=== PATIENT | male | born 1970 | race African-American/Black ===

== ENCOUNTER 2019-04-02 10:49 | Emergency (ER) | payer SELFPAY ==
[2019-04-02 10:55] VITALS: PULSE 79; TEMP 98.3; BMI 26.2
--- NOTE | 2019-04-02 11:03 | PDOC ---
History of Present Illness - General Chief Complaint: Chest Pain Stated Complaint: CP/SOB AND HICCUPS Time Seen by Provider: 04/02/19 10:59 - History of Present Illness Initial Comments: HPI: 48yo M with PMH of acid reflux, SVT, HLD, and asthma complaining of hiccups x 2 days. Patient states he had a similar episode about one month ago. He presented to [facility] and was given "a shot" which in addition to a prescription medication (does not remember the name) helped his hiccups dissipate after about three days. Patient believes his hiccups are triggered by acid reflux. Has been eating poorly lately due to the holiday season. Reports SOB and chest burning associated with hiccuping. No fevers or chills. PCP: Dr. Moura ROS: Constitutional: no fever, no chills HEENT: no throat pain, no dysphagia Cardiovascular: +chest burning no palpitations Respiratory: +hiccuping, +shortness of breath Gastrointestinal: no abdominal pain, no nausea Genitourinary: no dysuria, no hematuria Musculoskeletal: no myalgia, no arthralgia Skin: no rash, no itching Neurologic: no headache, no weakness PE: General: Awake, alert, and fully oriented, in no acute distress Head: No signs of trauma Eyes: EOMI, sclera anicteric ENT: Moist mucus membranes Neck: Normal ROM, supple Lungs: Lungs clear, Normal breath sounds, +hiccuping Cardio: Regular rhythm, S1 and S2 present Abdomen: Soft, nontender. No guarding, no rebound, no masses Extremities: Normal range of motion, Distal pulses present SKIN: Warm, Dry, normal turgor Neurologic: Cranial nerves II through XII grossly intact. Normal speech ED Course/MDM: DDX including but not limited to hiccuping due to GERD/psych, ACS, MSK Labs, EKG, CXR Protonix Famotidine Reglan Simethicone EKG: rate 76, Qtc 400, NSR 04/02/19 11:03 CBC WBC 7.1 K/mm3 (4.0-10.0) 04/02/19 11:30 RBC 5.32 M/mm3 (4.00-5.60) 04/02/19 11:30 Hgb 14.8 GM/dL (11.7-16.9) 04/02/19 11:30 Hct 45.7 % (35.4-49) 04/02/19 11:30 MCV 85.9 fl (80-96) 04/02/19 11:30 MCH 27.8 pg (25.7-33.7) 04/02/19 11:30 MCHC 32.4 g/dl (32.0-35.9) 04/02/19 11:30 RDW 13.8 % (11.9-15.9) 04/02/19 11:30 Plt Count 194 K/MM3 (134-434) D 04/02/19 11:30 MPV 8.4 fl (7.5-11.1) 04/02/19 11:30 Absolute Neuts (auto) 3.8 K/mm3 (1.5-8.0) 04/02/19 11:30 Neutrophils % 53.8 % (42.8-82.8) D 04/02/19 11:30 Neutrophils % (Manual) 53.1 % (42.8-82.8) 04/02/19 11:30 Band Neutrophils % 0.0 % 04/02/19 11:30 Lymphocytes % 21.5 % (8-40) D 04/02/19 11:30 Lymphocytes % (Manual) 19.8 % (8-40) 04/02/19 11:30 Monocytes % 20.6 % (3.8-10.2) H 04/02/19 11:30 Monocytes % (Manual) 13 % (3.8-10.2) H 04/02/19 11:30 Eosinophils % 3.5 % (0-4.5) 04/02/19 11:30 Eosinophils % (Manual) 4.2 % (0-4.5) 04/02/19 11:30 Basophils % 0.6 % (0-2.0) 04/02/19 11:30 Basophils % (Manual) 0.0 % (0-2.0) 04/02/19 11:30 Myelocytes % (Man) 0 % (0-2) 04/02/19 11:30 Promyelocytes % (Man) 0 % (0-2) 04/02/19 11:30 Blast Cells % (Manual) 0 % (0-0) 04/02/19 11:30 Nucleated RBC % 0 % (0-0) 04/02/19 11:30 Metamyelocytes 0 % (0-2) 04/02/19 11:30 Hypochromia 0 04/02/19 11:30 Platelet Estimate Normal 04/02/19 11:30 Polychromasia 0 04/02/19 11:30 Poikilocytosis 0 04/02/19 11:30 Anisocytosis 0 04/02/19 11:30 Microcytosis 0 04/02/19 11:30 Macrocytosis 0 04/02/19 11:30 No leukocytosis CMP Sodium 138 mmol/L (136-145) 04/02/19 11:30 Potassium 4.0 mmol/L (3.5-5.1) 04/02/19 11:30 Chloride 103 mmol/L (98-107) 04/02/19 11:30 Carbon Dioxide 28 mmol/L (21-32) 04/02/19 11:30 Anion Gap 6 MMOL/L (8-16) L 04/02/19 11:30 BUN 8.1 mg/dL (7-18) 04/02/19 11:30 Creatinine 0.9 mg/dL (0.55-1.3) 04/02/19 11:30 Est GFR (CKD-EPI)AfAm 116.65 04/02/19 11:30 Est GFR (CKD-EPI)NonAf 100.64 04/02/19 11:30 Random Glucose 96 mg/dL (74-106) 04/02/19 11:30 Calcium 8.9 mg/dL (8.5-10.1) 04/02/19 11:30 Total Bilirubin 0.2 mg/dL (0.2-1) 04/02/19 11:30 AST 16 U/L (15-37) 04/02/19 11:30 ALT 24 U/L (13-61) 04/02/19 11:30 Alkaline Phosphatase 65 U/L (45-117) 04/02/19 11:30 Troponin I < 0.02 ng/ml (0.00-0.05) 04/02/19 11:30 Total Protein 7.0 g/dl (6.4-8.2) 04/02/19 11:30 Albumin 3.6 g/dl (3.4-5.0) 04/02/19 11:30 Electrolytes unremarkable Cr normal No transaminitis Tpn unremarkable Patient with continued hiccups Thorazine ordered 04/02/19 13:25 Patient's hiccups likely due to GERD; omeprazole and thorazine sent to pharmacy Given non-ischemic EKG and negative troponin, I have low suspicion for ACS To follow up with PCP Return precautions Stable for discharge CXR as read by radiology: " EXAM#: TYPE/EXAM: RESULT: [id number] RAD/CHEST X-RAY PORTABLE* Portable chest: Chest pain Single view of the chest reveals clear lungs, prominent knob, prominent jake and normal heart. The angles are sharp. The soft tissues are intact. An acute process is not seen. Since 05/28/2004 there is a slightly weaker inspiratory effort. Impression : No acute chest pathology. Reported By: Jose Hercules MD 04/02/19 1231 " Past History - Past Medical History Allergies/Adverse Reactions: Allergies Allergy/AdvReac Type Severity Reaction Status Date / Time No Known Allergies Allergy Verified 04/02/19 11:09 Home Medications: Ambulatory Orders Chlorpromazine [Thorazine -] 25 mg PO TID #9 tablet 04/02/19 Famotidine 20 mg PO BID 04/02/19 Omeprazole 10 mg PO DAILY #30 capsule. 04/02/19 propRANOLol HCL [Inderal] 20 mg PO BID 04/02/19 Asthma: Yes Cardiac Disorders: Yes (MVP) COPD: No Hypercholesterolemia: Yes - Surgical History Abdominal Surgery: Yes (HERNIA) - Immunization History Immunization Up to Date: No - Psycho Social/Smoking Cessation Hx Smoking Status: Yes Smoking History: Current every day smoker Have you smoked in the past 12 months: Yes Number of Cigarettes Smoked Daily: 4 Information on smoking cessation initiated: No Hx Alcohol Use: No Drug/Substance Use Hx: No *Physical Exam - Vital Signs Last Vital Signs Temp Pulse Resp BP Pulse Ox 98.3 F 79 16 135/97 100 04/02/19 10:52 04/02/19 10:52 04/02/19 10:52 04/02/19 10:52 04/02/19 10:52 ED Treatment Course - LABORATORY CBC & Chemistry Diagram: 04/02/19 11:30 04/02/19 11:30 Discharge - Discharge Information Problems reviewed: Yes Clinical Impression/Diagnosis: Hiccups Condition: Stable Disposition: HOME - Additional Discharge Information Prescriptions: Chlorpromazine [Thorazine -] 25 mg PO TID #9 tablet Omeprazole 10 mg PO DAILY #30 capsule.dr - Follow up/Referral Referrals: West Moura MD [Primary Care Provider] - - Patient Discharge Instructions Patient Printed Discharge Instructions: DI for Hiccups Additional Instructions: You came to the emergency department for hiccups. You were given several medications: famotidine, pantoprazole, metoclopramide, simethicone, and chlorpromazine. Prescriptions sent to your pharmacy. Take as instructed. Follow up with your primary care provider within 72 hours to discuss this ED visit and to further evaluate your symptoms. Your care is not complete until you do so. Call and make an appointment. Immediate medical attention is required if you have: focal weakness, severe headache, high fever, persistent vomiting, changes in vision, severe muscle pain , dark (tea-colored) urine, or any other new or concerning symptoms. If you think you are having an emergency, call for emergency medical services or present to the emergency department right away. - Post Discharge Activity
[2019-04-02] MEDS ORDERED: FAMOTIDINE 20 MG/50 ML IVPB 20 MG/50 ML MG IVPB ONE ×2 (11:25→11:43)
[2019-04-02] MEDS ORDERED: PANTOPRAZOLE SODIUM 40 MG VIAL IVPUSH ONE (11:25)
[2019-04-02] MEDS ORDERED: PANTOPRAZOLE SODIUM 40 MG/100 ML BAG IVPB ONE (11:42)
[2019-04-02 11:53] LABS: BASO % 0.6 % (0-2.0); EOS % 3.5 % (0-4.5); HEMATOCRIT 45.7 % (35.4-49); HEMOGLOBIN 14.8 GM/dL (11.7-16.9); LYMPH % 21.5 % (8-40); MCH 27.8 pg (25.7-33.7); MCHC 32.4 g/dl (32.0-35.9); MEAN CELL VOLUME 85.9 fl (80-96); MEAN PLT VOLUME 8.4 fl (7.5-11.1); MONO % 20.6 % (3.8-10.2); NEUT % 53.8 % (42.8-82.8); PLATELET COUNT 194 K/MM3 (134-434); RBC 5.32 M/mm3 (4.00-5.60); RDW 13.8 % (11.9-15.9); WHITE BLOOD COUNT 7.1 K/mm3 (4.0-10.0)
[2019-04-02] MEDS ORDERED: METOCLOPRAMIDE HCL INJECTION 10 MG/2 ML VIAL IVPUSH ONE ×2 (11:53→11:59)
[2019-04-02] MEDS ORDERED: SIMETHICONE 40 MG/0.6 ML BOTTLE PO ONE (11:58)
[2019-04-02] MEDS ORDERED: METOCLOPRAMIDE HCL INJECTION 10 MG/2 ML VIAL ONE (12:09)
[2019-04-02 12:23] LABS: ALBUMIN 3.6 g/dl (3.4-5.0); ALK PHOS 65 U/L (45-117); ANION GAP 6 MMOL/L (8-16); BILIRUBIN,TOTAL 0.2 mg/dL (0.2-1); BLOOD UREA NITROGEN 8.1 mg/dL (7-18); CALCIUM 8.9 mg/dL (8.5-10.1); CHLORIDE 103 mmol/L (98-107); CO2 28 mmol/L (21-32); CREATININE 0.9 mg/dL (0.55-1.3); GLUCOSE,RANDOM 96 mg/dL (74-106); SGOT/AST 16 U/L (15-37); SGPT/ALT 24 U/L (13-61); SODIUM 138 mmol/L (136-145)
--- NOTE | 2019-04-02 12:50 | PDOC ---
Documentation entered by Judy Eduardo SCRIBE, acting as scribe for Aman Moeller MD. Aman Moeller MD: This documentation has been prepared by the Jayce moyer Xhesika, SCRIBE, under my direction and personally reviewed by me in its entirety. I confirm that the documentation accurately reflects all work, treatment, procedures, and medical decision making performed by me. Attending Attestation - Resident Resident Name: Mary ShiJohanny - ED Attending Attestation I have performed the following: I have examined & evaluated the patient, The case was reviewed & discussed with the resident, I agree w/resident's findings & plan, Exceptions are as noted - HPI HPI: 04/02/19 12:09 The patient is a 48 year old male with a PMH of acid reflux, SVT, HLD, and asthma who presents to the ED for 2 days of hiccups. Pt states he had a similar episode 1 month ago (lasted 3 days), was seen at [facility] and was d/c with PPIs and medication (does not remember names). Pt finished his medication and saw Dr. Moura, who prescribed him 3 more days of meds, with relief of symptoms. Pt reports associated SOB and chest burning when he endorses hiccups. Pt states he ate ate spicy/ acidic food and drank alcohol last night, which triggers his acid reflux. The patient denies headache and dizziness. Denies fever, chills, cough, nausea, vomiting, diarrhea and constipation. Denies dysuria, frequency, urgency and hematuria. Allergies:, NKDA Social Hx: current everyday smoker. Denies illicit drug use. - Physicial Exam PE: 04/02/19 12:10 Vitals: Triage Vital signs reviewed General Appearance: no acute distress, well nourished well developed. + hiccuping Neck: Supple;No Nuchal rigidity Chest Wall: Nontender Cardiac: Regular rate and rhythm, no murmurs, no rubs, no gallops, Lungs: Clear to auscultation bilateral, good air movement bilaterally, Abdomen: Soft, nondistended, normal bowel sounds, nontender to palpation Extremities: Full range of motion to all extremities, no cyanosis, clubbing, or edema Skin: Warm and dry, no rashes or lesions, no petechiae Neuro: AOX3; Cranial Nerves 2-12 grossly c intact, Strength intact to all extremities, Sensation intact to all extremities, gait normal Psych: normal mood, normal affect - Medical Decision Making 04/02/ Well-appearing no apparent distress patient with hiccups since yesterday this is a second time in 2 months patient has had the same thing occur it has been triggered by overeating over drinking which he did last night on [place] last time this happened he required Thorazine IM and a 3-day course Reevaluation patient feels better after GI cocktail IM Thorazine given will discharge home with 3-day course of Thorazine p.o. he will follow-up with his doctor and gastroenterology return to ED for any severe worsening symptoms or for any concerns.
[2019-04-02] MEDS ORDERED: chlorproMAZINE HCL 25 MG/1 ML AMP IM ONE (13:13)
[2019-04-02] MEDS ORDERED: chlorproMAZINE HCL 25 MG/1 ML AMP ONE (13:17)
[2019-04-02 13:21] LABS: ANISOCYTOSIS 0; MACROCYTOSIS 0; PLATELET ESTIMATE NORMAL
[2019-04-02 13:57] VITALS: BP 134/83
--- NOTE | 2019-04-02 17:27 | EKG ---
Test Reason : Blood Pressure : / mmHG Vent. Rate : 076 BPM Atrial Rate : 076 BPM P-R Int : 148 ms QRS Dur : 084 ms QT Int : 356 ms P-R-T Axes : 019 036 031 degrees QTc Int : 400 ms NORMAL SINUS RHYTHM NORMAL ECG WHEN COMPARED WITH ECG OF 18-SEP-2012 12:41, NO SIGNIFICANT CHANGE WAS FOUND BASELINE ARTIFACT Confirmed by PEE BENJAMIN MD ([id number]) on 04/02/2019 5:26:48 PM Referred By: Confirmed By:PEE BENJAMIN MD
== END 2019-04-02 13:59 | disposition home or self-care (01) ==
LOC: JER 10:49
PROC: 3E023GC Introduction of Other Therapeutic Substance into Muscle, Percutaneous Approach (ICD-10-PCS; principal; 2019-04-02)
PROC: 3E033GC Introduction of Other Therapeutic Substance into Peripheral Vein, Percutaneous Approach (ICD-10-PCS; 2019-04-02)
DX: R06.6 Hiccough (principal); F17.210 Nicotine dependence, cigarettes, uncomplicated; J45.909 Unspecified asthma, uncomplicated; E78.00 Pure hypercholesterolemia, unspecified; I34.1 Nonrheumatic mitral (valve) prolapse
CPT/HCPCS: 36415; 71045-TC-FY; 80053; 84484; 85025; 87804; 93005; 93010; 99283-25

== ENCOUNTER 2020-07-30 04:43 | Day surgery (SDC) | payer OTHER ==
[2020-07-29 09:55] VITALS: BMI 29.7
[2020-07-30] MEDS ORDERED: EPHEDRINE SULFATE/0.9% NACL/PF 50 MG/10 ML SYRINGE NR ONE (06:45)
[2020-07-30] MEDS ORDERED: NEOSTIGMINE METHYLSULFATE 0.5 MG/ML - 10 ML MDV ONE (06:45)
[2020-07-30] MEDS ORDERED: SUCCINYLCHOLINE CHLORIDE 200 MG/10 ML SYRINGE ONE (06:45)
[2020-07-30] MEDS ORDERED: ROCURONIUM BROMIDE 50 MG/5 ML SYRINGE ONE (06:45)
[2020-07-30] MEDS ORDERED: LIDOCAINE HCL 2% JELLY (5 ML/TUBE) ONE (06:49)
[2020-07-30] MEDS ORDERED: ceFAZolin SODIUM 1 GM VIAL ONE (06:49)
[2020-07-30] MEDS ORDERED: LIDOCAINE HCL/PF 2% SDV 5ML VIAL ONE ×2 (06:49→09:11)
[2020-07-30] MEDS ORDERED: MIDAZOLAM HCL 2 MG/2 ML SINGLE DOSE VIAL ONE (06:50)
[2020-07-30] MEDS ORDERED: KETAMINE HCL 200 MG/20 ML VIAL ONE (06:51)
[2020-07-30] MEDS ORDERED: PROPOFOL 20 ML ONE ×3 (06:53)
[2020-07-30] MEDS ORDERED: BUPIVACAINE HCL 50 ML ONE (07:29)
[2020-07-30] MEDS ORDERED: LIDOCAINE HCL 1%, 10 MG/ML (20ML VIAL) ONE (07:29)
[2020-07-30] MEDS ORDERED: ceFAZolin SODIUM 1 GM VIAL IVPB ONE (08:40)
[2020-07-30] MEDS ORDERED: ACETAMINOPHEN INJECTION 100 ML IVPB ONE (08:58)
[2020-07-30] MEDS ORDERED: ETOMIDATE 20 MG/10 ML AMPUL IVPUSH ONE (09:08)
[2020-07-30] MEDS ORDERED: BUPIVACAINE HCL/PF 0.5% (5MG/ML) 10 ML VIAL IJ ONE (09:50)
[2020-07-30] MEDS ORDERED: ONDANSETRON 4 MG/2 ML VIAL IVPUSH PRN (10:13)
[2020-07-30] MEDS ORDERED: ONDANSETRON 4 MG/2 ML VIAL ONE (10:37)
[2020-07-30 11:56] VITALS: PULSE 52; TEMP 97.7
[2020-07-30] MEDS ORDERED: oxyCODONE HCL 5 MG TABLET PO ONE (14:00)
[2020-07-30 14:45] VITALS: BP 133/92
[2020-07-30] MEDS ORDERED: oxyCODONE HCL 5 MG TABLET ONE (15:27)
== END 2020-07-30 17:10 | disposition home or self-care (01) ==
LOC: JASU-SURG 04:43
PROVIDERS: ATTEND Surgery
PROC: 0YU50JZ Supplement Right Inguinal Region with Synthetic Substitute, Open Approach (ICD-10-PCS; principal; 2020-07-30 08:00)
DX: K40.90 Unilateral inguinal hernia, without obstruction or gangrene, not specified as recurrent (principal)
CPT/HCPCS: 88304-TC; 94760; J0131